=== PATIENT | male | born 1955 | race Caucasian/White ===

== ENCOUNTER → 2021-10-01 | Outpatient (CLI) | payer MEDICARE ==
[~2021-10-01] MED LIST: LOSARTAN-HCTZ1 EAC1 PO; MELOXICAM7.5 MG PO; METOPROLOL SUC100 MG PO; PLAVIX75 MG PO; PRILOSEC OTC20 MG PO; PROBIOTIC & AC1 EACH PO; SERTRALINE HCL50 MG PO
== END ==
LOC: RAD 15:48
PROVIDERS: ATTEND Family Medicine
DX: M25.551 Pain in right hip (principal); R07.81 Pleurodynia; M54.50 Low back pain, unspecified
CPT/HCPCS: 71101

== ENCOUNTER → 2022-01-14 | Outpatient (CLI) | payer MEDICARE | LOC: MRI 14:47 | PROVIDERS: ATTEND Family Medicine | DX: M25.552 Pain in left hip (principal); M16.0 Bilateral primary osteoarthritis of hip ==